=== PATIENT | male | born 2000 | race Caucasian/White ===

== ENCOUNTER → 2020-05-29 | Outpatient (CLI) | payer OTHER | LOC: KOH-I 08:09 | DX: Q75.9 Congenital malformation of skull and face bones, unspecified (principal) | CPT/HCPCS: 70450 ==

== ENCOUNTER 2021-06-22 06:46 | Emergency (ER) | payer OTHER ==
[2021-06-22 07:32] LABS: HEMOGLOBIN 16.1 gm/dl (14.0-17.5); RED BLOOD COUNT 5.57 M/UL (4.20-5.50); WHITE BLOOD COUNT 13.9 K/UL (4.5-11.0)
[2021-06-22 07:51] LABS: BUN/CREATININE RATIO 17 (0-10)
[2021-06-22] MEDS ORDERED: IBUPROFEN600 MG PO (09:54)
== END 2021-06-22 10:06 | disposition home or self-care (01) ==
LOC: ER1 06:46
PROVIDERS: Nurse Practitioner
DX: M79.652 Pain in left thigh (principal)
CPT/HCPCS: 73552; 80053; 82550; 82553; 85025; 85379; 96374; 99284; J1885; J7030